=== PATIENT | female | born 1995 | race Caucasian/White ===

== ENCOUNTER → 2018-04-25 | Outpatient (CLI) | payer BC ==
[2013-12-09 14:56] VITALS: BP 116/65
[~2018-04-25] MED LIST: MOME13HF2 IH; NORE-68 PO; PRED20TA PO; PRED5TAB19 PO
--- NOTE | 2018-04-25 16:57 | RAD ---
Left lower extremity venous ultrasound, 04/25/2018 : History: Left leg pain and swelling Duplex evaluation including grayscale, color flow and spectral Doppler analysis was performed. The femoral and popliteal veins show no filling defects to suggest DVT. The visualized calf veins are unremarkable. IMPRESSION: There is no sonographic evidence of deep vein thrombosis in the left lower extremity Electronically signed by: Antonio Montiel MD (04/25/2018 4:52 PM) [facility]
== END | disposition home or self-care (01) ==
LOC: US 15:56
PROVIDERS: ATTEND Family Medicine
DX: M79.89 Other specified soft tissue disorders (principal)
CPT/HCPCS: 93971

== ENCOUNTER → 2018-07-23 | Outpatient (CLI) | payer BC ==
[2013-12-09 14:56] VITALS: BP 116/65
[~2018-07-23] MED LIST changes: +CONTRAST GIVEN. MC PRN; +IOHEXOL 240 MG/ML 50ML VIAL. PO ONE; +IOHEXOL 300 MG/ML 100ML VIAL. IV ONE
--- NOTE | 2018-07-23 16:31 | RAD ---
CT of the abdomen and pelvis with contrast, 07/23/2018: HISTORY: Abdominal pain, diarrhea, vomiting Multidetector CT imaging was performed following oral and IV administration of contrast. No hepatic abnormality is detected. The gallbladder is unremarkable. The pancreas shows no abnormality. The spleen is of normal size. No renal abnormality is detected. The uterus is within normal limits in size and deviated to the right of midline. A 2.4 cm cystic structure in the left adnexa is probably an ovarian cyst. The urinary bladder is mildly distended. No retroperitoneal or pelvic adenopathy is seen. There is a paucity of intra-abdominal fat the bowel loops in this patient. The bowel loops are not dilated. Multiple small mesenteric lymph nodes are seen without definite pathologic enlargement. The oral contrast material has not reached the terminal ileum or cecum. The appendix is definitively visualized. No dilated appendix or pericecal inflammatory process is seen. No free fluid or free air is evident in the abdomen or pelvis. IMPRESSION: 1. Small left ovarian cyst. 2. The abdomen and pelvis are otherwise unremarkable. PQRS Compliance Statement: One or more of the following individualized dose reduction techniques were utilized for this examination: 1. Automated exposure control 2. Adjustment of the mA and/or kV according to patient size 3. Use of iterative reconstruction technique Electronically signed by: Antonio Montiel MD (07/23/2018 4:28 PM) [facility]
== END ==
LOC: CT 15:15
PROVIDERS: ATTEND Family Medicine
DX: N83.292 Other ovarian cyst, left side (principal); R11.2 Nausea with vomiting, unspecified
CPT/HCPCS: 74177; Q9966; Q9967